=== PATIENT | male | born 1980 | race Caucasian/White ===

== ENCOUNTER → 2018-09-06 | Outpatient (CLI) | payer OTHER ==
[~2018-09-06] MED LIST: CHOL10005 PO; MULT1CAP59 PO; OMEG100032 PO; SIMV-49 PO
== END ==
LOC: LAB 14:41
PROVIDERS: ATTEND Otolaryngology
DX: J30.9 Allergic rhinitis, unspecified (principal)
CPT/HCPCS: 36415; 86003

== ENCOUNTER → 2019-04-04 | Outpatient (CLI) | payer OTHER ==
[~2019-04-04] MED LIST changes: +IPRA15SP7 NS
== END ==
LOC: LAB 15:40
PROVIDERS: ATTEND Urology
DX: Z80.42 Family history of malignant neoplasm of prostate (principal)
CPT/HCPCS: 36415; 84153